=== PATIENT | female | born 2000 | race African-American/Black ===

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

== ENCOUNTER 2018-02-11 00:53 | Emergency (ER) | payer MEDICAID ==
[~2018-02-11] VITALS: Ht 172.7 cm; Wt 95.3 kg
[~2018-02-11 00:53] MED LIST: TYLENOL EXTRA500 MG ORAL
[2018-02-11] MEDS ORDERED: IBUPROFEN600 MG ORAL (01:39)
[2018-02-11 01:50] VITALS: BP 136/95
--- NOTE | 2018-02-11 02:40 | Emergency Room Report ---
History of Present Illness General Chief Complaint: Lower Extremity Injury Source: Patient Present Illness HPI Patient is a 17-year-old female presented after increased left ankle pain. The patient reported injury approximately 2 hours prior to arrival. Patient had inverted her left ankle. She reports having increased pain with ambulation. Patient was noted to have increased pain and swelling. She reports having felt some clicking. She denies other locations of pain. Allergies: Coded Allergies: BANANA (Verified Allergy, Unknown, rashes, 02/11/18) PENICILLINS (Verified Allergy, Unknown, 02/11/18) Patient History Past Medical History: see triage record Last Menstrual Period: now Now: No Reviewed Nursing Documentation: PMH: Agreed; PSxH: Agreed Nursing Documentation-PMH Hx Asthma: Yes Hx COPD: No - hearing loss in right ear Review of Systems All Other Systems: negative except mentioned in HPI Physical Exam Vital Signs Date Time Temp Pulse Resp B/P (MAP) Pulse Ox O2 Delivery O2 Flow Rate FiO2 02/11/18 00:55 98.2 82 16 136/95 96 Room Air 98.2 General Appearance: well appearing, no apparent distress, alert, GCS 15 Head: normocephalic, atraumatic ENT: hearing grossly normal, normal voice Neck: full range of motion, supple Respiratory: no respiratory distress, speaking full sentences Musculoskeletal: no calf tenderness, other - tenderness to l Neurologic: normal inspection, alert, oriented x3, responsive Psychiatric: mood/affect normal Skin: no rash Medical Decision Making Diagnostic Impression: Primary Impression: Left ankle sprain ER Course Patient presented for ankle pain. Differential diagnosis included was not limited to sprain, fracture, dislocation, cellulitis, vascular insufficiency. X -ray imaging of the ankle was ordered. The x-ray imaging of the left ankle 3 views interpreted by me showed normal bony alignment without evident fracture. The patient was given Rafal wrap and crutches. She is given ibuprofen for pain. Patient is advised follow-up with primary care physician the next few days. She is advised to keep foot elevated and to return if she had any concerns. Labs Test 02/11/18 01:30 Urine HCG, Qualitative Negative (NEGATIVE) Last Vital Signs Date Time Temp Pulse Resp B/P (MAP) Pulse Ox O2 Delivery O2 Flow Rate FiO2 02/11/18 01:50 98.2 02/11/18 01:50 16 136/95 96 Room Air 02/11/18 00:55 82 Status: improved Disposition: HOME, SELF-CARE Condition: Stable Scripts Ibuprofen* (MOTRIN*) 600 Mg Tablet 600 MG ORAL Q8H PRN for For Pain, #30 TAB 0 Refills Prov: Alexis Garcia MD 02/11/18 Patient Instructions: Ankle Sprain Alexis Garcia MD Feb 11, 2018 02:39
--- NOTE | 2018-02-11 10:49 | Diagnostic Imaging Report ---
Indication: Pain Technique: XRAY Ankle Compl Min 3v L Comparison: None FINDINGS/IMPRESSION: Mild soft tissue swelling about the lateral malleolus. No evidence of acute fracture. Ankle mortise intact on these nonstress views. Imaged hindfoot grossly unremarkable. No ankle joint effusion or radiopaque foreign body.
== END 2018-02-11 01:50 | disposition home or self-care (01) ==
LOC: EMR 01:21
DX: S93.402A Sprain of unspecified ligament of left ankle, initial encounter (principal); X50.1XXA Overexertion from prolonged static or awkward postures, initial encounter; Y92.9 Unspecified place or not applicable; Z88.0 Allergy status to penicillin; Z91.018 Allergy to other foods
CPT/HCPCS: 81025; 99283

== ENCOUNTER 2018-05-05 14:43 | Emergency (ER) | payer MEDICAID ==
[~2018-05-05] VITALS: Ht 172.7 cm; Wt 95.3 kg
[~2018-05-05 14:43] MED LIST changes: +IBUPROFEN600 MG ORAL
[2018-05-05 15:30] VITALS: BP 132/75
--- NOTE | 2018-05-05 15:32 | Emergency Room Report ---
History of Present Illness General Chief Complaint: Nosebleed Source: Patient Present Illness HPI 18-year-old female presents to the emergency department complaining of having a nosebleed twice today. Patient was sent from nurse's office at school for evaluation. Patient reports that during the second nosebleed she did experience a transient episode of dizziness that resolved rather quickly is stating that lasted less than 10 seconds. Patient reports long-standing history of frequent nosebleeds. She states that she is currently battling an upper respiratory infection which includes congestion, rhinorrhea and intermittent cough. She reports that bleeding has subsided at this time she denies trauma she denies taking blood thinning medications for sudden onset headache. Allergies: Coded Allergies: BANANA (Verified Allergy, Unknown, rashes, 02/11/18) PENICILLINS (Verified Allergy, Unknown, 02/11/18) Patient History Past Medical History: see triage record Past Surgical History: none Pertinent Family History: none Last Menstrual Period: unknown Now: No Reviewed Nursing Documentation: PMH: Agreed; PSxH: Agreed Nursing Documentation-PMH Past Medical History: No History, Except For Hx Asthma: Yes Hx COPD: No - hearing loss in right ear Review of Systems All Other Systems: negative except mentioned in HPI Physical Exam Vital Signs Date Time Temp Pulse Resp B/P (MAP) Pulse Ox O2 Delivery O2 Flow Rate FiO2 05/05/18 15:14 98.0 77 14 132/75 98 Room Air 98.1 Sp02 EP Interpretation: reviewed, normal General Appearance: no apparent distress, alert, GCS 15, non-toxic Head: normocephalic, atraumatic Eyes: bilateral eye normal inspection, bilateral eye PERRL ENT: hearing grossly normal, normal voice, uvula midline, moist mucus membranes , nasal congestion, other - dry blood noted in hesselbach's plexus bilaterally, no current bleeding, no evidence to suggest posterior bleed. Neck: full range of motion Respiratory: chest non-tender, lungs clear, normal breath sounds, speaking full sentences Cardiovascular #1: regular rate, rhythm Genitourinary: normal inspection Musculoskeletal: back normal, gait/station normal, normal range of motion, non- tender Neurologic: alert, oriented x3, responsive, motor strength/tone normal, sensory intact, speech normal, grossly normal Psychiatric: judgement/insight normal Skin: normal color, no rash, warm/dry, well hydrated Lymphatic: no adenopathy Medical Decision Making PA Attestation Dr. Santiago is my supervising physician whom pt. management has been discussed with. Diagnostic Impression: Primary Impression: Epistaxis ER Course 18-year-old female presents to the emergency department complaining of having a nosebleed twice today. Patient was sent from nurse's office at school for evaluation. Patient reports that during the second nosebleed she did experience a transient episode of dizziness that resolved rather quickly is stating that lasted less than 10 seconds. Patient reports long-standing history of frequent nosebleeds. She states that she is currently battling an upper respiratory infection which includes congestion, rhinorrhea and intermittent cough. She reports that bleeding has subsided at this time she denies trauma she denies taking blood thinning medications for sudden onset headache. Ddx considered but are not limited to epistaxis , clotting disorder, above therapeutic levels on blood thinner. nasal trauma, septal hematoma. Vital signs: are WNL, pt. is afebrile H&PE are most consistent with: currently resolved Epistaxis -No evidence of trauma, pt. not on blood thinning medications no other symptoms indicating clotting abnormality. ORDERS: none required at this time, the diagnosis is clinical ED INTERVENTIONS: -None required at this time. no active bleeding. Pt. declines cauterization. - Afrin spray DISCHARGE: At this time pt. is stable for d/c to home. Will provide printed patient care instructions, and any necessary prescriptions. Care plan and follow up instructions have been discussed with the patient prior to discharge. Last Vital Signs Date Time Temp Pulse Resp B/P (MAP) Pulse Ox O2 Delivery O2 Flow Rate FiO2 05/05/18 15:14 98.0 77 14 132/75 98 Room Air 98.1 Disposition: HOME, SELF-CARE Condition: Stable Scripts Sodium Chloride (Saline Mist) 44 Ml [place] 1 SPRAYS NS TID, #44 ML Prov: Berta Waldrop 05/05/18 Departure Forms: Return to School Return to School On: May 05, 2018 School Release Restrictions: None Other School Release Restrictions: please excuse tardiness pt. was being evaluated at Emergency Dept. Return to Full Activity: May 05, 2018 Patient Instructions: Nosebleed, [id number] Additional Instructions: Take medications as directed. Follow up with a Primary Care Provider in 3-5 days, even if your symptoms have resolved. --Please review list of primary care clinics, if you do not already have a primary care provider Return sooner to ED if new symptoms occur, or current symptoms become worse. - Please note that this Emergency Department Report was dictated using [employer] shop worker technology software, occasionally this can lead to erroneous entry secondary to interpretation by the dictation equipment. Berta Waldrop May 05, 2018 15:32
[2018-05-05] MEDS ORDERED: SALINE MIST44 ML NS (15:52)
[2018-05-05] MEDS ORDERED: Oxymetazoline 0.05% Na Spray 30ml NASAL ONE (16:00)
[2018-05-05 16:09] VITALS: BP 132/75
== END 2018-05-05 16:13 | disposition home or self-care (01) ==
LOC: EMR 15:49
DX: R04.0 Epistaxis (principal); J45.909 Unspecified asthma, uncomplicated; Z88.0 Allergy status to penicillin; Z91.018 Allergy to other foods
CPT/HCPCS: 99282

== ENCOUNTER 2018-08-19 17:34 | Emergency (ER) | payer MEDICAID ==
[~2018-08-19] VITALS: Ht 172.7 cm; Wt 95.3 kg
[~2018-08-19 17:34] MED LIST changes: +SALINE MIST44 ML NS
[2018-08-19 17:43] VITALS: BP 131/84
[2018-08-19] MEDS ORDERED: PROAIR HFA8.5 GM INH (17:48)
[2018-08-19] MEDS ORDERED: Excedrin Migraine tab ORAL ONE (18:15)
--- NOTE | 2018-08-19 18:26 | Emergency Room Report ---
History of Present Illness General Chief Complaint: Headache Source: Patient Present Illness HPI 18 Yo Female presents to the ED C/O 04/19 in severity LAWSON x 10 days. Described as throbbing/constant and the right temporal area and behind the right eye. Patient reports that it did go away for 1-2 days and then came back. She denies history of migraines, she reports several days before new years she did bump her head had no symptoms until after New Year's. Patient denies taking blood thinning medications. She denies dizziness, nausea, vomiting, sudden onset of her headache, recent upper respiratory illness, unilateral weakness or difficulty with speech. She denies history of blood clotting disorder. He denies recent travel. Patient states that she did take IBU on several occasions with only slightly reduced her symptoms. Denies neck pain or stiffness. Denies fevers, chills, abdominal pain, urinary frequency, urgency dysuria or hematuria. Patient denies . Allergies: Coded Allergies: BANANA (Verified Allergy, Unknown, rashes, 02/11/18) PENICILLINS (Verified Allergy, Unknown, 02/11/18) Patient History Past Medical History: see triage record Past Surgical History: none Pertinent Family History: none Last Menstrual Period: unknown/ irregular period Reviewed Nursing Documentation: PMH: Agreed; PSxH: Agreed Nursing Documentation-PMH Past Medical History: No History, Except For Hx Asthma: Yes Hx COPD: No - hearing loss in right ear Review of Systems All Other Systems: negative except mentioned in HPI Physical Exam Vital Signs Date Time Temp Pulse Resp B/P (MAP) Pulse Ox O2 Delivery O2 Flow Rate FiO2 08/19/18 17:43 98.8 97 16 131/84 100 Room Air Sp02 EP Interpretation: reviewed, normal General Appearance: no apparent distress, alert, GCS 15, non-toxic Head: normocephalic, atraumatic Eyes: bilateral eye normal inspection, bilateral eye PERRL ENT: hearing grossly normal, normal voice Neck: full range of motion, no meningismus, no bony tend Respiratory: lungs clear, normal breath sounds, speaking full sentences Cardiovascular #1: regular rate, rhythm Genitourinary: normal inspection, no CVA tenderness Musculoskeletal: back normal, gait/station normal, normal range of motion, non- tender Neurologic: alert, oriented x3, responsive, motor strength/tone normal, sensory intact, cerebellar normal, normal gait, speech normal, no pronator, other - no ataxi, and no Nystagmus, grossly normal Psychiatric: judgement/insight normal Skin: normal color, no rash, warm/dry, well hydrated Medical Decision Making PA Attestation Dr. Olvera is my supervising Physician whom patient management has been discussed with. Diagnostic Impression: Primary Impression: Headache Qualified Codes: R51 - Headache ER Course 18 Yo Female presents to the ED C/O 04/19 in severity LAWSON x 10 days. Described as throbbing/constant and the right temporal area and behind the right eye. Patient reports that it did go away for 1-2 days and then came back. She denies history of migraines, she reports several days before new years she did bump her head had no symptoms until after New Year's. Patient denies taking blood thinning medications. She denies dizziness, nausea, vomiting, sudden onset of her headache, recent upper respiratory illness, unilateral weakness or difficulty with speech. She denies history of blood clotting disorder. He denies recent travel. Patient states that she did take IBU on several occasions with only slightly reduced her symptoms. Denies neck pain or stiffness. Denies fevers, chills, abdominal pain, urinary frequency, urgency dysuria or hematuria. Patient denies . Ddx considered but are not limited to migraine, SAH, Pseudomotor Cerebri,, Mass lesion, Cluster LAWSON, Tension LAWSON, Post lumbar puncture LAWSON. Vital signs: are WNL, pt. is afebrile H&PE are most consistent with atypical headache- no focal neurological deficits noted on exam. Normal neurological exam. ORDERS: -UA: WNL - Urine HCG: Negative -CT Head No contrast: Unremarkable ordered after pt. was not having any relief from ED interventions/meds. ED INTERVENTIONS: - Reglan -Excedrin Migraine PO - Tramadol PO -I do not identify an emergent condition at this time. With current presentation , pt. is stable for close outpatient follow up and conservative treatment to include Neurology Evaluation. D/w pt. to return promptly to ED with worsening or new symptoms.- Pt. verbalizes' understanding and agreement with proposed treatment plan.proposed treatment plan. DISCHARGE: At this time pt. is stable for d/c to home. Will provide printed patient care instructions, and any necessary prescriptions. Care plan and follow up instructions have been discussed with the patient prior to discharge. Labs Test 08/19/18 18:55 Urine Color Pale yellow Urine Appearance Clear Urine pH 6 (4.5-8.0) Urine Specific [place] 1.015 (1.005-1.035) Urine Protein Negative (NEGATIVE) Urine Glucose (UA) Negative (NEGATIVE) Urine Ketones Negative (NEGATIVE) Urine Blood Negative (NEGATIVE) Urine Nitrite Negative (NEGATIVE) Urine Bilirubin Negative (NEGATIVE) Urine Urobilinogen Normal MG/DL (0.0-1.0) Urine Leukocyte Esterase Negative (NEGATIVE) CT/MRI/US Diagnostic Results CT/MRI/US Diagnostic Results : Imaging Test Ordered: CT Head No contrast Impression " Unremarkable " Per official radiology report- Please see report for specific details. Last Vital Signs Date Time Temp Pulse Resp B/P (MAP) Pulse Ox O2 Delivery O2 Flow Rate FiO2 08/19/18 17:43 98.8 97 16 131/84 100 Room Air Disposition: HOME, SELF-CARE Condition: Stable Scripts Aspirin/Acetaminophen/Caffeine (EXCEDRIN MIGRAINE GELTAB) 1 Each Tablet 1 EACH PO Q6HR, #30 TAB Prov: Berta Waldrop 08/19/18 Patient Instructions: Migraine Headache Additional Instructions: Take medications as directed. Follow up with a Primary Care Provider in 3-5 days For a referral to have NEUROLOGIST Evaluation, even if your symptoms have resolved. --Please review list of primary care clinics, if you do not already have a primary care provider Return sooner to ED if new symptoms occur, or current symptoms become worse. - Please note that this Emergency Department Report was dictated using [employer] photo[employer]raving technology software, occasionally this can lead to erroneous entry secondary to interpretation by the dictation equipment. Berta Waldrop Aug 19, 2018 18:26
--- NOTE | 2018-08-19 19:14 | NUR ---
ED Nurse Note:urine sent to labs
[2018-08-19 19:17] LABS: APPEARANCE,URINE CLEAR; BILIRUBIN, URINE NEGATIVE (NEGATIVE); COLOR,URINE PALE YELLOW; GLUCOSE, URINE (UA) NEGATIVE (NEGATIVE); KETONES,URINE NEGATIVE (NEGATIVE); LEUKOCYTE ESTERASE ,URINE NEGATIVE (NEGATIVE); NITRITE,URINE NEGATIVE (NEGATIVE); PH,URINE 6 (4.5-8.0); PROTEIN,URINE NEGATIVE (NEGATIVE); UROBILINOGEN,URINE NORMAL MG/DL (0.0-1.0)
--- NOTE | 2018-08-19 20:14 | NUR ---
ED Nurse Note: After 30 minute assessment of pain rated at 0/10, patient now reports recurrent head pain of 8/10. ER provider informed.
[2018-08-19] MEDS ORDERED: traMADol 50mg tab ORAL ONE (20:30)
[2018-08-19] MEDS ORDERED: EXCEDRIN MIGRA1 EACH PO (20:32)
[2018-08-19 20:38] VITALS: BP 131/84
--- NOTE | 2018-08-19 20:38 | NUR ---
ED Nurse Note: Patient medicated a second time due to recurrent head pain. Patient cleared for discharge by ER provider. Patient accompanied by mother, ambulatory with steady gait, no s/s of acute distress. patient does note a decrease in pain level after administration of Tramadol. Patient verbalized understanding of discharge instruction and had no questions. Mom will drive patient home.
--- NOTE | 2018-08-20 08:58 | Diagnostic Imaging Report ---
Indication: Headache Technique: Contiguous 5 mm thick transaxial imaging of the head obtained in a Siemens Sensation [address] scanner. Soft tissue and bone windows generated. Automatic Exposure Control was utilized. Total Dose length Product (DLP): 1347.[address] Dose Index Volume (CTDIvol): 70.38 mGy Comparison: 10/19/2017 Findings: The size and configuration of the cortical sulci, basal cisterns, and ventricles are within normal limits for age. There is no mass effect, midline shift, or edema identified. There is no evidence of acute hemorrhage or abnormal intra-axial or extra-axial fluid collections. The bones and soft tissues are unremarkable. Impression: No mass effect, edema or acute bleed. No interval change The CT scanner at [facility] is accredited by the [employer] and the scans are performed using dose optimization techniques as appropriate to a performed exam including Automatic Exposure control.
== END 2018-08-19 20:38 | disposition home or self-care (01) ==
LOC: EMR 18:19
DX: R51 Headache (principal); J45.909 Unspecified asthma, uncomplicated; Z91.018 Allergy to other foods; Z88.0 Allergy status to penicillin
CPT/HCPCS: 70450; 81003; 99284

== ENCOUNTER 2019-06-06 02:11 | Emergency (ER) | payer MEDICAID, OTHER ==
[~2019-06-06] VITALS: Ht 172.7 cm; Wt 108.9 kg
[~2019-06-06 02:11] MED LIST changes: +EXCEDRIN MIGRA1 EACH PO; +PROAIR HFA8.5 GM INH
[2019-06-06 02:24] VITALS: BP 136/90
--- NOTE | 2019-06-06 02:24 | NUR ---
ED Nurse Note: pt walked in to ED C/O N/V x 20 episodes since 0700 06/02/19. pt also has headache and body aches. pt has temp of 101.2
--- NOTE | 2019-06-06 02:40 | NUR ---
ED Nurse Note: blood and urine sample sent down to lab
--- NOTE | 2019-06-06 02:40 | Emergency Room Report ---
History of Present Illness General Chief Complaint: Nausea, Vomiting, and Diarrhea Source: Patient Present Illness HPI This is a 19-year-old female with history of asthma. She presents with chief complaint of abdominal pain with nausea vomiting diarrhea. Onset this afternoon. Unable to keep anything down. Vomiting is persistent. Nonbloody nonbilious. Diarrhea is watery. Pain is sharp and crampy. Denies any fever chills but denies any sick contact. Allergies: Coded Allergies: BANANA (Verified Allergy, Unknown, rashes, 02/11/18) PENICILLINS (Verified Allergy, Unknown, 02/11/18) Patient History Past Medical History: see triage record, old chart reviewed, asthma Past Surgical History: none Pertinent Family History: none Social History: Denies: smoking Last Menstrual Period: unknown Now: No Immunizations: other Reviewed Nursing Documentation: PMH: Agreed; PSxH: Agreed Nursing Documentation-PMH Past Medical History: No History, Except For Hx Asthma: Yes Hx COPD: No Review of Systems Eye: Denies: eye pain, blurred vision ENT: Denies: ear pain, nose congestion, throat swelling Respiratory: Denies: cough, shortness of breath Cardiovascular: Denies: chest pain, palpitations Gastrointestinal: Reports: abdominal pain, diarrhea, nausea, vomiting Musculoskeletal: Denies: back pain, joint pain Skin: Denies: rash Neurological: Denies: headache, numbness Endocrine: Denies: increased thirst, increased urine Hematologic/Lymphatic: Denies: easy bruising All Other Systems: negative except mentioned in HPI Physical Exam Vital Signs Date Time Temp Pulse Resp B/P (MAP) Pulse Ox O2 Delivery O2 Flow Rate FiO2 06/06/19 02:15 99.3 107 22 139/91 (107) 92 Room Air Vitals with tachycardia Sp02 EP Interpretation: reviewed, normal General Appearance: well appearing, no apparent distress, alert Head: normocephalic, atraumatic Eyes: bilateral eye PERRL, bilateral eye EOMI ENT: hearing grossly normal, normal pharynx Neck: full range of motion, supple, no meningismus Respiratory: chest non-tender, lungs clear, normal breath sounds Cardiovascular #1: regular rate, rhythm, no murmur Gastrointestinal: normal bowel sounds, no mass, no organomegaly, no bruit, non- distended, tenderness - Mild, diffuse Musculoskeletal: back normal, gait/station normal, normal range of motion Psychiatric: mood/affect normal Medical Decision Making Diagnostic Impression: Primary Impression: Nausea, vomiting, and diarrhea ER Course This patient presents with abdominal pain with nausea vomiting diarrhea. Most likely a gastroenteritis. No evidence of an acute abdomen or obstruction. No bacterial infection. Patient is better now. Will discharge home. CT/MRI/US Diagnostic Results CT/MRI/US Diagnostic Results : Imaging Test Ordered: CT abdomen pelvis Impression Read by radiologist. No acute inflammatory or obstructive process seen. Last Vital Signs Date Time Temp Pulse Resp B/P (MAP) Pulse Ox O2 Delivery O2 Flow Rate FiO2 06/06/19 02:24 101.2 88 19 136/90 97 Room Air Status: improved Disposition: HOME, SELF-CARE Condition: Stable Scripts Ondansetron (Zofran) 4 Mg Tablet 4 MG ORAL Q6H PRN for Nausea & Vomiting, #10 TAB 0 Refills Prov: Nayan De La Fuente MD 06/06/19 Ibuprofen* (MOTRIN*) 600 Mg Tablet 600 MG ORAL THREE TIMES A DAY, #30 TAB 0 Refills Prov: Nayan De La Fuente MD 06/06/19 Referrals: NON PHYSICIAN (PCP) Additional Instructions: Advance diet as tolerated. Follow-up with your doctor in 2-3 days if not better. Return if worse. Nayan De La Fuente MD Jun 06, 2019 02:40
[2019-06-06] MEDS ORDERED: Ketorolac 30mg Inj IV ONE (02:45)
[2019-06-06 03:06] LABS: BILIRUBIN, URINE NEGATIVE (NEGATIVE); GLUCOSE, URINE (UA) NEGATIVE (NEGATIVE); KETONES,URINE NEGATIVE (NEGATIVE); LEUKOCYTE ESTERASE ,URINE 1+ (NEGATIVE); NITRITE,URINE NEGATIVE (NEGATIVE); PH,URINE 6 (4.5-8.0); PROTEIN,URINE 1+ (NEGATIVE); UROBILINOGEN,URINE NORMAL MG/DL (0.0-1.0)
[2019-06-06 03:10] LABS: HEMATOCRIT 47.7 % (37.0-47.0); HEMOGLOBIN 15.7 G/DL (12.0-16.0); MEAN CORPUSCULAR VOLUME 84 FL (80-99); PLATELET COUNT 293 K/UL (150-450); RED CELL DISTRIBUTION WIDTH 11.8 % (11.6-14.8); WHITE BLOOD COUNT 10.4 K/UL (4.8-10.8)
[2019-06-06 03:14] LABS: APPEARANCE,URINE SLIGHTLY CLOUDY; COLOR,URINE YELLOW
[2019-06-06] MEDS ORDERED: cefTRIAXone 1 GM in NS 55 ML IVPB ONE (03:15)
[2019-06-06 03:16] LABS: ANION GAP 10 mmol/L (5-15); BLOOD UREA NITROGEN 10 mg/dL (7-18); CALCIUM 9.4 MG/DL (8.5-10.1); CARBON DIOXIDE 27 MMOL/L (21-32); CHLORIDE 99 MMOL/L (98-107); CREATININE 0.9 MG/DL (0.55-1.30); SODIUM 136 MMOL/L (136-145)
[2019-06-06 03:18] LABS: ALANINE AMINOTRANSFERASE 27 U/L (12-78); ALBUMIN 4.1 G/DL (3.4-5.0); ALBUMIN/GLOBULIN RATIO 0.9 (1.0-2.7); ALKALINE PHOSPHATASE 132 U/L (46-116); ASPARTATE AMINO TRANSFERASE 21 U/L (15-37); BILIRUBIN,TOTAL 0.4 MG/DL (0.2-1.0)
--- NOTE | 2019-06-06 03:18 | NUR ---
ED Nurse Note: report given to Jessi Acevedo RN
[2019-06-06] MEDS ORDERED: Morphine Sulfate 4mg/ml Inj (IV USE ONLY) ONE (03:21)
--- NOTE | 2019-06-06 03:21 | NUR ---
ED Nurse Note: pt has been transported down to CT via wheelchair. in no acute distress at this time
[2019-06-06] MEDS ORDERED: Morphine Sulfate 4mg/ml Inj (IV USE ONLY) IVP ONE (03:30)
--- NOTE | 2019-06-06 03:42 | NUR ---
ED Nurse Note: pt has returned from CT, abx is hanging. pt rates pain a 6/10 and states that it is getting better
--- NOTE | 2019-06-06 04:34 | Diagnostic Imaging Report ---
Indication: Abdominal pain Technique: Continuous helical transaxial imaging of the abdomen and pelvis was obtained from the lung bases to the pubic symphysis. No intravenous contrast was administered. Coronal 2-D reformats were also obtained. Automatic Exposure Control was utilized. Total Dose length Product (DLP): [address] Dose Index Volume (CTDIvol): 21.2 mGy Comparison: none Findings: The lung bases are clear. There is no hydronephrosis or nephrolithiasis. There is no free fluid or evidence of bowel obstruction. Appendix is normal. Few small nodes are present in the lower quadrant mesentery. Study is limited due to body habitus and lack of IV and oral contrast. IMPRESSION: No acute findings [facility] has communicated the preliminary results to the Emergency Department. Their findings are largely concordant with this report. The CT scanner at [facility] is accredited by the [employer] and the scans are performed using dose optimization techniques as appropriate to a performed exam including Automatic Exposure control.
--- NOTE | 2019-06-06 04:45 | NUR ---
ED Nurse Note: pt is sleeping with mother at bedisde. vital signs are stable HR 71, 95% on room air, BP is 1076/53
[2019-06-06 05:00] VITALS: BP 107/53
[2019-06-06] MEDS ORDERED: ZOFRAN4 MG ORAL (05:11)
[2019-06-06] MEDS ORDERED: IBUPROFEN600 MG ORAL (05:11)
--- NOTE | 2019-06-06 05:27 | NUR ---
ED Nurse Note: Pt cleared by health care Provider for discharge. DC instructions/prescription were given and explained to both pt and mother. they verbalized understanding of teachings. All medical devices such as ID band and IV removed. Pt is AAO x4, ambulatory and left with all personal belongings.
[2019-06-06 05:29] VITALS: BP 122/56
== END 2019-06-06 05:32 | disposition home or self-care (01) ==
LOC: EMR 02:37
DX: R11.2 Nausea with vomiting, unspecified (principal); R19.7 Diarrhea, unspecified; J45.909 Unspecified asthma, uncomplicated; Z88.0 Allergy status to penicillin; Z91.018 Allergy to other foods
CPT/HCPCS: 36415; 74176; 80053; 81003; 81025; 83690; 85025; 87086; 96361; 96365; 96375; J0696; J1885; J2270; J2405; Z7502; 99284; J7030

== ENCOUNTER 2019-09-25 23:10 | Emergency (ER) | payer OTHER ==
[~2019-09-25] VITALS: Ht 172.7 cm; Wt 99.8 kg
[~2019-09-25 23:10] MED LIST changes: +ZOFRAN4 MG ORAL
[2019-09-25 23:36] VITALS: BP 159/95
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
[2019-09-26] MEDS ORDERED: Tetanus/Diptheria/Pertussis IM ONE
[2019-09-26] MEDS ORDERED: BACITRACIN15 GM TOPIC (00:23)
[2019-09-26 00:26] VITALS: BP 159/95
--- NOTE | 2019-09-26 00:26 | NUR ---
ED Nurse Note: Pt cleared by ERMD for discharge. DC instructions/prescription was given and explained to pt and verbalized understanding of teachings. All medical deviecs such as ID band removed. Pt is AAO x4, ambulatory and left with all personal belongings.
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
== END 2019-09-26 00:26 | disposition home or self-care (01) ==
LOC: EMR 23:59
DX: S00.81XA Abrasion of other part of head, initial encounter (principal); V43.62XA Car passenger injured in collision with other type car in traffic accident, initial encounter; Y92.410 Unspecified street and highway as the place of occurrence of the external cause; Z88.0 Allergy status to penicillin; Z91.018 Allergy to other foods; Z23 Encounter for immunization
CPT/HCPCS: 90471; 90715; Z7502; 99282

== ENCOUNTER 2020-04-29 22:00 | Emergency (ER) | payer OTHER ==
[~2020-04-29] VITALS: Ht 172.7 cm; Wt 97.5 kg
[~2020-04-29 22:00] MED LIST changes: +BACITRACIN15 GM TOPIC
[2020-04-29 22:16] VITALS: BP 167/112
--- NOTE | 2020-04-29 22:16 | NUR ---
ED Nurse Note: Pt ambulated into ed from home CO abcess to inner thigh that popped after a hot bath. Pt denies pain at this time. Pt aao x 4, ambulates with steady gait. VS elevated, ERMD aware. Awaiting further orders. Awaiting ERMD at bedside.
--- NOTE | 2020-04-29 22:20 | NUR ---
ED Nurse Note: ERMD at bedside with 1 RN
[2020-04-29] MEDS ORDERED: Piperacillin/Tazobactam 4.5 GM in NS 110 ML IV ONE (22:45)
[2020-04-29] MEDS ORDERED: Clindamycin 600mg 50 ML IV ONE (22:45)
[2020-04-29] MEDS ORDERED: Omnipaque-300 100ml vial INJ PRN (22:45)
--- NOTE | 2020-04-29 22:55 | NUR ---
ED Nurse Note: pt moved from OB to RM 2. IV line initiated, blood drawn and sent to lab. Pt unable to provide UA at this time.
[2020-04-29 23:05] LABS: BASOPHILS % (AUTO) 1.3 % (0.0-2.0); EOSINOPHILS % (AUTO) 1.7 % (0.0-3.0); HEMOGLOBIN 14.7 G/DL (12.0-16.0); LYMPHOCYTES % (AUTO) 26.7 % (20.0-45.0); MEAN CORPUSCULAR VOLUME 85 FL (80-99); MONOCYTES % (AUTO) 6.5 % (1.0-10.0); NEUTROPHILS % (AUTO) 63.9 % (45.0-75.0); PLATELET COUNT 369 K/UL (150-450); RED BLOOD COUNT 5.28 M/UL (4.20-5.40); RED CELL DISTRIBUTION WIDTH 12.5 % (11.6-14.8); WHITE BLOOD COUNT 11.7 K/UL (4.8-10.8)
[2020-04-29 23:14] LABS: ANION GAP 9 mmol/L (5-15); BLOOD UREA NITROGEN 17 mg/dL (7-18); CALCIUM 9.7 MG/DL (8.5-10.1); CARBON DIOXIDE 28 MMOL/L (21-32); CHLORIDE 103 MMOL/L (98-107); CREATININE 1.1 MG/DL (0.55-1.30); SODIUM 140 MMOL/L (136-145)
[2020-04-29 23:15] LABS: INR 0.9 (0.9-1.1)
[2020-04-29 23:19] LABS: ALANINE AMINOTRANSFERASE 26 U/L (12-78); ALBUMIN 4.1 G/DL (3.4-5.0); ALBUMIN/GLOBULIN RATIO 0.8 (1.0-2.7); ALKALINE PHOSPHATASE 136 U/L (46-116); ASPARTATE AMINO TRANSFERASE 17 U/L (15-37); BILIRUBIN,TOTAL 0.2 MG/DL (0.2-1.0)
[2020-04-29] MEDS ORDERED: Solu-MEDROL 125mg Inj IVP ONE (23:30)
[2020-04-29] MEDS ORDERED: DiphenhydrAMINE 50mg/ml Inj IVP ONE (23:30)
--- NOTE | 2020-04-29 23:42 | NUR ---
ED Nurse Note: Pt to CT
--- NOTE | 2020-04-30 00:15 | NUR ---
ED Nurse Note: Pt back from CT
[2020-04-30] MEDS ORDERED: DOXYCYCLINE MO100 MG ORAL (00:17)
[2020-04-30] MEDS ORDERED: BACTRIM DS TAB1 EAC1 ORAL (00:17)
--- NOTE | 2020-04-30 00:18 | Emergency Room Report ---
History of Present Illness General Chief Complaint: Skin Rash/Abscess Source: Patient Present Illness HPI 20-year-old female with history of obesity presents with chief complaint of nonhealing right gluteal abscess x2 months. Acutely over the past 2 days however patient describes worsening pain. She states that she has been taking Epson bath salts with mild relief. 2 days ago she describes the "boils popping" and blood clots coming out. She denies tenesmus, however endorses intermittent fevers as well as poorly localized abdominal pain.. Denies hematuria, dysuria, chest pain, shortness of breath, cough, weakness, or other symptoms Tdap was updated in September 2019. She states that she has had previous abscesses that were similar that were incised and drained during childhood. The patient's symptoms were gradual onset, severity was moderate, duration since 2 days. Quality: Aching Past medical history: Denies Past surgical history: Left axilla abscess incision and drainage Smoking: Denies Alcohol use: Denies Drug use: Denies Review of systems: CONST: ++ fevers ++ chills, No night sweats PULMONARY: No productive cough, No shortness of breath CARDIAC: No chest pain, No palpitations GI: No vomiting, No diarrhea , No melena_or_BRBPR : No dysuria, No hematuria, No discharge NEURO: No new_focal_weakness_or_numbness, No confusion, No vision changes 14 point Review of Systems is otherwise negative except per HPI Physical Exam: GENERAL: Awake_alert_ nontoxic, no acute distress Spo2 98% on RA -normal EYES: Extraocular muscles are intact. Conjunctivae clear. Lids without swelling ENT: External nose and ear normal_in_appearance. Oropharynx clear. Head_atrau matic, Moist_oral_mucosa NECK: No JVD. No meningismus. No thyromegaly. Supple. Trachea midline RESP: Normal respiratory effort. Symmetric rise. No stridor. Clear_to_auscultation_No_rales_No_wheezes CARDIAC: tachycardic. and regular rhytm. No_significant pedal edema. ABDOMEN: Soft. Nondistended. Nontender_No_rebound_or_guarding. No CVA tenderness to palpation Rectal exam was performed with an/syq 13 nav/c2 operator LIANA Bowen at bedside. Patient is noted to have a right inferior ulcerated gluteal abscess that has already self expressed. The edges of the wound are macerated and chronic appearing. There is slight cellulitis but no palpable crepitus. No active drainage or hemorrhage. There is a larger golf ball size hard induration deep to the cellulitis. Does not track further into the perineum or into the rectal vault or labia minora/majora on finger examination MSK: Normal muscle tone, without rigidity. Extremities without asymmetric deformity or swelling. SKIN: Warm and dry. No visible cyanosis or pallor NEUROLOGIC: Alert, oriented x3. Motor_and_sensation_grossly_intact. No truncal ataxia. Gait_normal Psych: Normal mood and affect, normal judgment and insight - COORDINATION OF CARE Case was discussed with: Patient Any labs and imaging that were ordered were interpreted as part of the medical decision making: Medical Decision Making/Plan: Differential diagnosis includes cholecystitis, choledocholithiasis, hepatitis, small bowel obstruction, volvulus, AAA, pancreatitis, atypical appendicitis, gastroparesis, gastritis, peptic ulcer disease, among others. Patient is well appearing with stable vital signs. Abdominal exam is non peritoneal with no guarding or rebound. She is noted to have a large acute on chronic appearing right inferior gluteal cleft abscess that is ulcerated and chronically expressed. There is a minimal amount of cellulitis. No crepitus. No Yumi's gangrene. Labs show specific leukocytosis of 11. Otherwise no significant metabolic acidosis or lactate elevation. CT scan shows no intra-abdominal or pelvic abscess. No free fluid. No acute surgical pathology. Incidentally, she was noted to have a prominent left ovary measuring 4 cm without abscess. Likely physiologic. Patient denies pelvic pain. She is refusing to give urinalysis sample because "she already went". The patient has no significant risk factors for PID, such as multiple sexual partners, history of STDs, vaginal discharge. Declines pelvic exam. She has never been sexually active and does not have concern for STD. The patients presentation is not consistent with ovarian torsion or hemorrhagic ovarian cyst, pain was not sudden onset, not associated with vomiting. The patient denies any bloody stool and has no pain out of proportion to exam, and no significant risk factors for mesenteric ischemia such as atrial fibrillation or severe PAD/PVD (peripheral arterial / vascular disease), thus definitive workup to rule out mesenteric ischemia was not pursued. Patient is afebrile, without any significant tenderness in the RUQ, and a negative [place] sign. The patients presentation does not appear to be consistent with acute cholecystitis and thus definitive imaging to rule it out was not pursued. The patient has no significant risk factors for AAA (abdominal aortic aneurysm) such as age over 50 with history of hypertension, connective tissue disorder, or 1st degree relative with AAA. the patient has normal dorsalis pedis pulses, no radiation of pain to the back, and no pulsatile mass felt on exam. The p atients profile was overall low risk for AAA and definitive workup was not pursued. ED intervention included IV fluids, clindamycin and pain control. We will discharge home with instructions for close outpatient follow-up. Recommend wet-to-dry dressings until the ulceration closes up. Will DC on Bactrim and doxycycline Wound check in 12 to 24 hours with PMD. If unable, patient instructed to come back to ER. Instructed her to follow-up with [facility] regarding her left ovarian cyst. Return ER precautions for torsion discussed. Highly doubt torsion at this time. 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 COVID-19 Screening: Negative COVID-19 COVID-19 Testing Source: march 2020 Patient History Last Menstrual Period: 2013 Nursing Documentation-PMH Past Medical History: No History, Except For Hx Asthma: Yes Hx COPD: No Physical Exam Vital Signs Date Time Temp Pulse Resp B/P (MAP) Pulse Ox O2 Delivery O2 Flow Rate FiO2 04/29/20 22:06 97.5 115 18 167/112 (130) 95 Room Air Sp02 EP Interpretation: reviewed, normal Medical Decision Making Diagnostic Impression: Primary Impression: Abscess, gluteal, right Additional Impressions: Cellulitis Skin ulceration Left ovarian enlargement Last Vital Signs Date Time Temp Pulse Resp B/P (MAP) Pulse Ox O2 Delivery O2 Flow Rate FiO2 04/29/20 22:16 97.5 115 18 167/112 95 Room Air Disposition: HOME, SELF-CARE Admit Decision Time: 00:16 Condition: Stable Scripts Doxycycline Monohydrate* (DOXYCYCLINE MONOHYDRATE*) 100 Mg Capsule 100 MG ORAL TWICE A DAY for 10 Days, #20 CAP 0 Refills Prov: Rosa Maria Gomez D.O. 04/30/20 Trimethoprim/Sulfamethoxazole 160/800* (BACTRIM DS TABLET*) 1 Each Tablet 1 TAB ORAL Q12H for 10 Days, #20 TAB 0 Refills Prov: Rosa Maria Gomez D.O. 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 Do not drink alcohol while taking antibiotics. Do not take antibiotics on an empty stomach. Avoid sunlight while you are taking doxycycline. You will need to follow-up with your primary care doctor within 1 to 2 days for referral to a specialist regarding your chronic gluteal ulceration. Follow-up with your doctor sooner if your condition requires a more timely clinical reevaluation. Return to the emergency department immediately if you feel that your condition is worsening or if you have any new or concerning symptoms. Review your discharge instructions and take any prescriptions given as instructed. You had a blood culture done to evaluate for specific types of bacteria associated with your infection. You were given an antibiotic that should treat most bacteria but there is always the possibility of antibiotic resistance. You will receive a telephone call if it is positive. If you do not receive a call, they are likely negative, but you should return to medical records to get your results to be sure, or have your primary doctor obtain them from our hospital, and especially if you are having persistent symptoms. If you are having persistent symptoms and are not able to get a hold of your culture results or your regular doctor you should return to the ER for a reevaluation. [facility] PROVIDES FREE OR LOW-COST HEALTH SERVICES TO PEOPLE WHO CAN SHOW PROOF THAT THEY LIVE IN [facility]. TO FIND MORE CLINICS PARTNERED WITH THE [facility] TO PROVIDE SERVICE, PLEASE CALL . Rosa Maria Gomez D.O. Apr 30, 2020 00:18
--- NOTE | 2020-04-30 00:34 | Diagnostic Imaging Report ---
EXAM: CT Abdomen and Pelvis With Intravenous Contrast CLINICAL HISTORY: ABSCESS TECHNIQUE: Axial computed tomography images of the abdomen and pelvis with intravenous contrast. CTDI is 13.30 mGy and DLP is 727.40 mGy-cm. One or more of the following dose reduction techniques were used: automated exposure control, adjustment of the mA and/or kV according to patient size, use of iterative reconstruction technique. Coronal and sagittal reformatted images were created and reviewed. COMPARISON: No relevant prior studies available. FINDINGS: Lung bases: Unremarkable. No mass. No consolidation. ABDOMEN: Liver: Unremarkable. No mass. Gallbladder and bile ducts: Unremarkable. No calcified stones. No ductal dilation. Pancreas: Unremarkable. No mass. No ductal dilation. Spleen: Unremarkable. No splenomegaly. Adrenals: Unremarkable. No mass. Kidneys and ureters: Unremarkable. No solid mass. No hydronephrosis. Stomach and bowel: Unremarkable. No obstruction. No mucosal thickening. PELVIS: Appendix: No findings to suggest acute appendicitis. Bladder: Unremarkable. No mass. Reproductive: Prominent left ovary 4.6 cm likely reflects normal appearance, but is incompletely evaluated on this study. Recommend outpatient pelvic ultrasound to further characterize. ABDOMEN and PELVIS: Intraperitoneal space: Unremarkable. No free air. No significant fluid collection. Bones/joints: No acute fracture. No dislocation. Soft tissues: Unremarkable. Vasculature: Unremarkable. No abdominal aortic aneurysm. Lymph nodes: Unremarkable. No enlarged lymph nodes. IMPRESSION: 1. No acute abnormality definitively identified to account for patient presentation. 2. Prominent left ovary 4.6 cm likely reflects normal appearance, but is incompletely evaluated on this study. Recommend outpatient pelvic ultrasound to further characterize. 3. Otherwise unremarkable study.
[2020-04-30 01:00] VITALS: BP 133/63
[2020-04-30 01:25] VITALS: BP 133/63
--- NOTE | 2020-04-30 01:25 | NUR ---
ER DISCHARGE NOTE: Patient is cleared to be discharged per ERMD, pt is aox4, on room air, with stable vital signs. pt was given dc and prescription instructions, pt was able to verbalize understanding, pt id band and iv site removed without complications. pt is able to ambulate with steady gait. pt took all belongings.
== END 2020-04-30 01:25 | disposition home or self-care (01) ==
LOC: EMR 22:26
DX: L02.31 Cutaneous abscess of buttock (principal); L03.317 Cellulitis of buttock; Z88.0 Allergy status to penicillin; Z91.018 Allergy to other foods; L98.499 Non-pressure chronic ulcer of skin of other sites with unspecified severity; N83.8 Other noninflammatory disorders of ovary, fallopian tube and broad ligament; D72.829 Elevated white blood cell count, unspecified
CPT/HCPCS: 36415; 74177; 80053; 83605; 84484; 85025; 85610; 85730; 87040; 96365; 96368; 96375; J1200; J2405; J2543; J2930; J7030; Q9965; Z7502; 99284; S0077

== ENCOUNTER 2020-09-01 09:09 | Emergency (ER) | payer OTHER ==
[~2020-09-01] VITALS: Ht 172.7 cm; Wt 106.6 kg
[~2020-09-01 09:09] MED LIST changes: +BACTRIM DS TAB1 EAC1 ORAL; +DOXYCYCLINE MO100 MG ORAL
[2020-09-01] MEDS ORDERED: BACTRIM DS TAB1 EAC1 ORAL (09:45)
[2020-09-01] MEDS ORDERED: DOXYCYCLINE MO100 MG ORAL (09:45)
[2020-09-01 09:56] VITALS: BP 166/98
[2020-09-01 10:01] VITALS: BP 166/98
--- NOTE | 2020-09-01 10:03 | NUR ---
examined by dr hansen discharged home with instruction and rx follow up with pmd
--- NOTE | 2020-09-01 10:22 | Emergency Room Report ---
History of Present Illness General Chief Complaint: Skin Rash/Abscess Source: Patient Present Illness HPI 20-year-old female presents for evaluation. States an abscess on her buttock noticed it 2 days ago. Denies pain. Denies fevers or chills. Is had them previously. Denies drainage. No other aggravating relieving factors. 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 COVID-19 Screening: Positive COVID-19 COVID-19 Testing Source: jul 2020 Patient History Past Medical History: asthma Past Surgical History: none Pertinent Family History: none Social History: Denies: smoking, alcohol use, drug use Now: No Immunizations: UTD Reviewed Nursing Documentation: PMH: Agreed; PSxH: Agreed Nursing Documentation-PMH Past Medical History: No History, Except For Hx Asthma: Yes Hx COPD: No Review of Systems All Other Systems: negative except mentioned in HPI Physical Exam Vital Signs Date Time Temp Pulse Resp B/P (MAP) Pulse Ox O2 Delivery O2 Flow Rate FiO2 09/01/20 09:26 98.6 87 20 166/98 (120) 97 Room Air Sp02 EP Interpretation: reviewed, normal General Appearance: no apparent distress, alert, GCS 15, non-toxic Head: normocephalic, atraumatic Eyes: bilateral eye normal inspection, bilateral eye PERRL ENT: hearing grossly normal, normal pharynx, no angioedema, normal voice Neck: full range of motion, supple/symm/no masses Respiratory: chest non-tender, lungs clear, normal breath sounds, speaking full sentences Cardiovascular #1: regular rate, rhythm, no edema Cardiovascular #2: 2+ carotid (R), 2+ carotid (L), 2+ radial (R), 2+ radial (L), 2+ dorsalis pedis (R), 2+ dorsalis pedis (L) Gastrointestinal: normal bowel sounds, non tender, soft, non-distended, no guarding, no rebound Rectal: deferred Genitourinary: normal inspection, no CVA tenderness Musculoskeletal: back normal, normal range of motion, gait/station normal, non- tender Neurologic: alert, motor strength/tone normal, oriented x3, sensory intact, responsive, speech normal Psychiatric: judgement/insight normal, memory normal, mood/affect normal, no suicidal/homicidal ideation Reflexes: 3+ bicep (R), 3+ bicep (L), 3+ tricep (R), 3+ tricep (L), 3+ knee (R), 3+ knee (L) Skin: other - abscess L lower buttock. fluctuant. no discharge Lymphatic: no adenopathy Medical Decision Making Diagnostic Impression: Primary Impression: Abscess of buttock ER Course Hospital Course 20 yo F presents to ED c/o abscess L buttock Differential diagnoses include: Cellulitis, dermatitis, insect bite, abscess Clinical course Patient placed on stretcher. After initial history, physical exam reveals a young female in no acute distress. On exam there is a abscess to the left lower buttock. Surrounding mild induration. There is some fluctuance noted. Discussed options with the patient. Offered option for drainage but she dec lined. Wants to attempt conservative therapy first with antibiotics. Recommend warm soaks and antibiotics and if does not resolve she needs to return to ED for drainage. She agrees Diagnosis - abscess of buttock stable and discharged to home with prescription for bactrim, doxycycline. warm soaks. Instructed to followup with PMD. Instructed return to ED if symptoms recur or worsen Last Vital Signs Date Time Temp Pulse Resp B/P (MAP) Pulse Ox O2 Delivery O2 Flow Rate FiO2 09/01/20 10:01 98.6 20 166/98 97 Room Air 09/01/20 09:26 87 Status: improved Disposition: HOME, SELF-CARE Condition: Stable Scripts Doxycycline Monohydrate* (DOXYCYCLINE MONOHYDRATE*) 100 Mg Capsule 100 MG ORAL TWICE A DAY for 10 Days, #20 CAP 0 Refills Prov: Avinash Meyer MD 09/01/20 Trimethoprim/Sulfamethoxazole 160/800* (BACTRIM DS TABLET*) 1 Each Tablet 1 TAB ORAL Q12H for 10 Days, #20 TAB 0 Refills Prov: Avinash Meyer MD 09/01/20 Patient Instructions: Abscess Avinash Meyer MD Sep 01, 2020 10:21
== END 2020-09-01 10:03 | disposition home or self-care (01) ==
LOC: EMR 09:40
DX: L02.31 Cutaneous abscess of buttock (principal); J45.909 Unspecified asthma, uncomplicated; Z88.0 Allergy status to penicillin; Z91.018 Allergy to other foods; Z86.16 Personal history of COVID-19; Z79.899 Other long term (current) drug therapy
CPT/HCPCS: 99282